=== PATIENT | male | born 1990 | race Caucasian/White ===

== ENCOUNTER 2019-02-16 14:29 | Emergency (ER) | payer SELFPAY ==
[~2019-02-16] VITALS: Ht 187.9 cm; Wt 72.6 kg
[~2019-02-16 14:29] MED LIST: ANAPROX275 MG PO; DIAZEPAM2 MG PO; KEFLEX500 MG PO; MOTRIN800 MG PO; MYCOLOG CREAM 115 GM PO
== END 2019-02-16 17:25 | disposition home or self-care (01) ==
LOC: ED 14:29
DX: S90.32XA Contusion of left foot, initial encounter (principal); W17.89XA Other fall from one level to another, initial encounter; Y93.89 Activity, other specified; Y92.89 Other specified places as the place of occurrence of the external cause; Y99.0 Civilian activity done for income or pay